=== PATIENT | female | born 1965 | race Caucasian/White ===

== ENCOUNTER 2018-03-02 08:45 | Outpatient (RCR) | payer BC | END 2018-03-13 | disposition home or self-care (01) | LOC: PTY 08:45 | DX: M76.60 Achilles tendinitis, unspecified leg (principal); M67.00 Short Achilles tendon (acquired), unspecified ankle ==

== ENCOUNTER 2018-03-17 08:20 | Outpatient (RCR) | payer BC | END 2018-04-13 | disposition home or self-care (01) | LOC: PTY 08:20 | DX: M76.60 Achilles tendinitis, unspecified leg (principal); M67.00 Short Achilles tendon (acquired), unspecified ankle ==

== ENCOUNTER 2018-04-18 08:15 | Outpatient (RCR) | payer BC | END 2018-05-13 | disposition home or self-care (01) | LOC: PTY 08:15 | DX: M76.62 Achilles tendinitis, left leg (principal); M76.61 Achilles tendinitis, right leg; M67.02 Short Achilles tendon (acquired), left ankle; M67.01 Short Achilles tendon (acquired), right ankle ==